=== PATIENT | male | born 1955 | race Caucasian/White ===

== ENCOUNTER 2021-12-17 18:20 | Emergency (ER) | payer MEDICARE ==
[2021-12-17 18:24] VITALS: PULSE 83
[2021-12-17] MEDS ORDERED: Sodium Chloride 0.9% 10 ML Syringe FLUSH PRN (18:32)
[2021-12-17] MEDS ORDERED: HYDROmorphone 0.5 MG/0.5 ML Syringe IVPUSH ONE (18:33)
[2021-12-17] MEDS ORDERED: Aspirin 81 MG Tab.Chew PO ONE (18:34)
[2021-12-17] MEDS ORDERED: Lactated Ringers 1,000 ML IV SCH (18:45)
[2021-12-17] MEDS ORDERED: Ondansetron 4 MG/2 ML SDV ONE (18:50)
[2021-12-17] MEDS ORDERED: Ondansetron 4 MG/2 ML SDV IVPUSH ONE (18:50)
[2021-12-17 19:11] LABS: PTT,PARTIAL THROMBOPLSTIN TIME 25.4 SEC (23.6-29.8)
[2021-12-17 19:17] LABS: CHLORIDE,CL 100 mmol/L (98-107); ESTIMATED GFR 57 mL/min (>=60); SODIUM,NA 140 mmol/L (136-145)
[2021-12-17] MEDS ORDERED: Iopamidol 612 MG/ML 100 ML Bottle IVPUSH ONE (19:31)
[2021-12-17 22:04] VITALS: BP 146/71
== END 2021-12-17 21:38 | disposition home or self-care (01) ==
LOC: LL.ED 18:20
DX: K51.011 Ulcerative (chronic) pancolitis with rectal bleeding (principal); I25.10 Atherosclerotic heart disease of native coronary artery without angina pectoris; J44.9 Chronic obstructive pulmonary disease, unspecified; I10 Essential (primary) hypertension; I25.2 Old myocardial infarction; Z79.899 Other long term (current) drug therapy; Z79.82 Long term (current) use of aspirin
CPT/HCPCS: 36415; 74177; 80053; 82150; 83605; 83690; 83735; 84100; 84484; 85025; 85610; 85730; 86140; 93005; 93010; 96361; 96374; 96375; 99284; 99284-25; A9270-GY; J1170; J2405; J3490; J7120; Q9967

== ENCOUNTER 2022-03-20 18:22 | Emergency (ER) | payer MEDICARE ==
[2022-03-20] MEDS ORDERED: Promethazine 25 MG/ML SDV IM PRN (18:40)
[2022-03-20] MEDS ORDERED: Ondansetron 4 MG/2 ML SDV IVPUSH PRN (18:40)
[2022-03-20] MEDS ORDERED: Morphine 4 MG/ML Syringe IVPUSH ONE ×2 (18:46→19:07)
[2022-03-20 18:57] VITALS: BP 137/54
[2022-03-20 18:58] LABS: CHLORIDE,CL 98 mmol/L (98-107); SODIUM,NA 135 mmol/L (136-145)
[2022-03-20 19:01] VITALS: PULSE 64
[2022-03-20 19:03] LABS: ANION GAP 7.9 meq/L (7-15); ESTIMATED GFR 53 mL/min (>=60)
[2022-03-20] MEDS ORDERED: Iopamidol 612 MG/ML 100 ML Bottle IVPUSH STA (19:09)
[2022-03-20] MEDS ORDERED: Sodium Chloride 0.9% 1,000 ML IV ONE (19:10)
[2022-03-20] MEDS ORDERED: methylPREDNISolone Sodium Succinate 40 MG/1 ML SDV IVPUSH ONE (20:25)
[2022-03-20] MEDS ORDERED: sulfaSALAzine 500 MG Tab PO ONE (20:28)
[2022-03-20] MEDS ORDERED: Acetaminophen 325 MG Tab PO ONE (20:52)
[2022-03-20] MEDS ORDERED: Acetaminophen/oxyCODONE 325-5 MG Tab PO ONE (20:52)
== END 2022-03-20 21:30 | disposition home or self-care (01) ==
LOC: LL.ED 18:22
DX: K51.90 Ulcerative colitis, unspecified, without complications (principal); I25.10 Atherosclerotic heart disease of native coronary artery without angina pectoris; I10 Essential (primary) hypertension; I25.2 Old myocardial infarction; J44.9 Chronic obstructive pulmonary disease, unspecified; M19.90 Unspecified osteoarthritis, unspecified site; Z79.82 Long term (current) use of aspirin; Z79.899 Other long term (current) drug therapy; Z72.0 Tobacco use
CPT/HCPCS: 36415; 74018; 74177; 80053; 82150; 83605; 83690; 83735; 85025; 86140; 96361; 96372; 96374; 96375; 99284-25; A9270-GY; J2270; J2405; J2550; J2920; J7030; Q9967

== ENCOUNTER 2022-05-01 08:18 | Day surgery (SDC) | payer MEDICARE ==
[~2022-05-01 08:18] MED LIST: Midazolam 1 MG/ML 2 ML SDV ONE; Propofol 200 MG/20 ML SDV ONE
[2022-05-01] MEDS ORDERED: Lactated Ringers 1,000 ML IV SCH (08:30)
[2022-05-01] MEDS ORDERED: Sodium Chloride 0.9% 10 ML Syringe FLUSH PRN (08:30)
[2022-05-01] MEDS ORDERED: Midazolam 1 MG/ML 2 ML SDV ONE (09:43)
[2022-05-01] MEDS ORDERED: Lidocaine 2% 5 ML SDV ONE (10:00)
[2022-05-01] MEDS ORDERED: Glycopyrrolate 0.2 MG/ML SDV IVPUSH ONE (10:00)
[2022-05-01 16:33] VITALS: BP 135/66; PULSE 80
== END 2022-05-01 12:05 | disposition home or self-care (01) ==
LOC: LL.SDS 08:18
PROVIDERS: ATTEND Surgery
DX: Z12.11 Encounter for screening for malignant neoplasm of colon (principal); D12.0 Benign neoplasm of cecum; K21.00 Gastro-esophageal reflux disease with esophagitis, without bleeding; K25.9 Gastric ulcer, unspecified as acute or chronic, without hemorrhage or perforation; K63.89 Other specified diseases of intestine; K52.9 Noninfective gastroenteritis and colitis, unspecified; I10 Essential (primary) hypertension; F17.210 Nicotine dependence, cigarettes, uncomplicated; Z79.899 Other long term (current) drug therapy
CPT/HCPCS: 88305; 88312; 88341; 88342; J2250; J2704; J3490; J7120

== ENCOUNTER 2023-07-28 10:55 | Emergency (ER) | payer MEDICARE, OTHER ==
[2023-07-28 11:23] LABS: BASOPHILS ABSOLUTE AUTO 0.18 K/uL (0.00-0.20); BASOPHILS PERCENT AUTO 1.2 % (0.0-2.0); EOSINOPHILS ABSOLUTE AUTO 0.56 K/uL (0.00-0.50); EOSINOPHILS PERCENT AUTO 3.8 % (0.0-5.0); HEMATOCRIT 48.5 % (39.0-49.0); HEMOGLOBIN 16.3 g/dL (13.1-16.8); LYMPHOCYTES ABSOLUTE AUTO 3.52 K/uL (0.50-3.50); LYMPHOCYTES PERCENT AUTO 23.9 % (10.0-50.0); MEAN CORPUSCULAR HEMOGLOBIN 31.4 pg (28.2-33.3); MEAN CORPUSCULAR HGB CONC 33.6 g/dL (31.7-36.0); MEAN CORPUSCULAR VOLUME 93.4 fL (84.0-98.0); MONOCYTES ABSOLUTE AUTO 1.72 K/uL (0.00-1.00); MONOCYTES PERCENT AUTO 11.7 % (2.0-14.0); NEUTROPHILS ABSOLUTE AUTO 8.74 K/uL (1.40-7.00); NEUTROPHILS PERCENT AUTO 59.4 % (45.0-80.0); PLATELET COUNT,PLT 494 K/uL (150-350); RED BLOOD CELL COUNT 5.19 M/uL (4.33-5.41); RED CELL DISTRIBUTION WIDTH 15.3 % (11.2-14.1); WHITE BLOOD CELL COUNT,WBC 14.7 K/uL (4.0-10.2)
[2023-07-28 11:36] LABS: ALANINE AMINOTRANSFERASE,ALT 33 U/L (12-78); ALBUMIN 3.5 g/dL (3.4-5.0); ALKALINE PHOSPHATASE 76 IU/L (46-116); ASPARTATE AMNIOTRANSFERASE,AST 33 U/L (15-37); BILIRUBIN TOTAL 0.7 mg/dL (0.2-1.0); BLOOD UREA NITROGEN,BUN 11 mg/dL (7-18); CALCIUM 8.8 mg/dL (8.5-10.1); CARBON DIOXIDE,CO2 24.9 mmol/L (21.0-32.0); CHLORIDE,CL 93 mmol/L (98-107); CREATININE 1.37 mg/dL (0.51-1.17); GLUCOSE RANDOM 99 mg/dL (70-99); POTASSIUM,K 3.1 mmol/L (3.5-5.1); PROTEIN TOTAL,TP 7.8 g/dL (6.4-8.2)
[2023-07-28 11:37] LABS: ANION GAP 6.2 meq/L (7-15); ESTIMATED GFR 56 mL/min (>=60); SODIUM,NA 121 mmol/L (136-145)
[2023-07-28] MEDS: Diphtheria,Pertussis(Acell),Tetanus Vaccine 0.5 ML Syringe IM ONE (11:39)
[2023-07-28] MEDS: Tranexamic Acid 1,000 MG/10 ML Vial TOP ONE (11:41)
[2023-07-28] MEDS: ceFAZolin 1 GM in Sodium Chloride 0.9% 100 ML IV ONE (11:41)
[2023-07-28] MEDS ORDERED: Potassium Bicarbonate/Cit Ac 20 MEQ Effervescent Tab PO ONE (13:01)
[2023-07-28] MEDS: Potassium Bicarbonate/Cit Ac 20 MEQ Effervescent Tab PO ONE ×2 (13:02→14:15)
[2023-07-28] MEDS: Lidocaine 1% 5 ML VIAL ONE (15:20)
[2023-07-28] MEDS: Bacitracin/Neomycin/Polymyxin B Oint 0.9 GM U/D Packet ONE (15:21)
== END 2023-07-28 15:34 | disposition home or self-care (01) ==
LOC: LL.ED 10:55
DX: S41.121A Laceration with foreign body of right upper arm, initial encounter (principal); S01.111A Laceration without foreign body of right eyelid and periocular area, initial encounter; S01.01XA Laceration without foreign body of scalp, initial encounter; E87.6 Hypokalemia; E87.1 Hypo-osmolality and hyponatremia; Z23 Encounter for immunization; I10 Essential (primary) hypertension; I25.2 Old myocardial infarction; I25.10 Atherosclerotic heart disease of native coronary artery without angina pectoris; Z79.82 Long term (current) use of aspirin; Z79.899 Other long term (current) drug therapy; W34.00XA Accidental discharge from unspecified firearms or gun, initial encounter
CPT/HCPCS: 12032; 36415; 70150; 73090-RT; 80053; 83735; 85025; 90471; 90715; 96365; 99285-25; A9270-GY; G0390; J0690; J3490

== ENCOUNTER 2024-03-25 03:46 | Emergency (ER) | payer MEDICARE ==
[2024-03-25 04:08] LABS: BASOPHILS ABSOLUTE AUTO 0.04 K/uL (0.00-0.20); BASOPHILS PERCENT AUTO 0.2 % (0.0-2.0); EOSINOPHILS ABSOLUTE AUTO 0.01 K/uL (0.00-0.50); HEMOGLOBIN 12.8 g/dL (13.1-16.8); IMMATURE GRAN ABSOLUTE AUTO 0.09 10^3/uL (0.00-0.50); IMMATURE GRAN PERCENT AUTO 0.4 % (0.0-5.0); LYMPHOCYTES ABSOLUTE AUTO 1.38 K/uL (0.50-3.50); LYMPHOCYTES PERCENT AUTO 5.8 % (10.0-50.0); MEAN CORPUSCULAR HEMOGLOBIN 29.2 pg (28.2-33.3); MEAN CORPUSCULAR HGB CONC 32.8 g/dL (31.7-36.0); MONOCYTES ABSOLUTE AUTO 3.78 K/uL (0.00-1.00); MONOCYTES PERCENT AUTO 15.8 % (2.0-14.0); NEUTROPHILS ABSOLUTE AUTO 18.65 K/uL (1.40-7.00); NEUTROPHILS PERCENT AUTO 77.8 % (45.0-80.0); PLATELET COUNT,PLT 519 K/uL (150-350); RED BLOOD CELL COUNT 4.38 M/uL (4.33-5.41); RED CELL DISTRIBUTION WIDTH 15.9 % (11.2-14.1)
[2024-03-25 04:09] VITALS: BP 151/76; PULSE 86
[2024-03-25 04:15] LABS: APPEARANCE,URINE SLIGHTLY CLOUDY; BILIRUBIN,URINE SMALL (NEGATIVE); COLOR,URINE DARK YELLOW; GLUCOSE,URINE NEGATIVE (NEGATIVE); KETONES,URINE TRACE mg/dL (NEGATIVE); LEUKOCYTE ESTERASE,URINE NEGATIVE (NEGATIVE); NITRITE,URINE NEGATIVE (NEGATIVE); OCCULT BLOOD,URINE NEGATIVE (NEGATIVE); PH,URINE 6.5 (5.0-9.0); PROTEIN,URINE 30 mg/dL (NEGATIVE)
[2024-03-25 04:24] LABS: BACTERIA,URINE NOT SEEN /HPF (NONE TO FEW); RBC,URINE 0-5 /HPF; WBC,URINE 0-5 /HPF
[2024-03-25 04:33] LABS: ALANINE AMINOTRANSFERASE,ALT 139 U/L (12-78); ALBUMIN 3.1 g/dL (3.4-5.0); ALKALINE PHOSPHATASE 399 IU/L (46-116); ANION GAP 12.2 meq/L (7-15); ASPARTATE AMNIOTRANSFERASE,AST 155 U/L (15-37); BLOOD UREA NITROGEN,BUN 11 mg/dL (7-18); CALCIUM 8.7 mg/dL (8.5-10.1); CARBON DIOXIDE,CO2 27.1 mmol/L (21.0-32.0); CHLORIDE,CL 100 mmol/L (98-107); CREATININE 1.16 mg/dL (0.51-1.17); ESTIMATED GFR 68 mL/min (>=60); GLUCOSE RANDOM 119 mg/dL (70-99); POTASSIUM,K 4.3 mmol/L (3.5-5.1); PROTEIN TOTAL,TP 8.2 g/dL (6.4-8.2); SODIUM,NA 135 mmol/L (136-145)
[2024-03-25] MEDS ORDERED: Naloxone 0.4 MG/ML SDV IVPUSH PRN ×2 (04:33→05:28)
[2024-03-25 04:49] LABS: INR 1.1
[2024-03-25] MEDS: fentaNYL 50 MCG/ML SDV IVPUSH ONE (04:51)
[2024-03-25] MEDS: Sodium Chloride 0.9% 10 ML Syringe FLUSH PRN (04:51)
[2024-03-25] MEDS ORDERED: Ondansetron 4 MG/2 ML SDV IVPUSH PRN (05:28)
[2024-03-25] MEDS: Piperacillin/Tazobactam 3.375 GM in Sodium Chloride 0.9% 100 ML IV SCH (05:31)
[2024-03-25] MEDS: fentaNYL 50 MCG/ML SDV IVPUSH PRN (05:33)
== END 2024-03-25 12:21 ==
LOC: LL.ED 03:46
DX: K81.0 Acute cholecystitis (principal); C78.7 Secondary malignant neoplasm of liver and intrahepatic bile duct; I25.10 Atherosclerotic heart disease of native coronary artery without angina pectoris; I25.2 Old myocardial infarction; I11.0 Hypertensive heart disease with heart failure; I50.30 Unspecified diastolic (congestive) heart failure; J44.9 Chronic obstructive pulmonary disease, unspecified; M19.90 Unspecified osteoarthritis, unspecified site; F17.210 Nicotine dependence, cigarettes, uncomplicated; Z79.82 Long term (current) use of aspirin; Z79.899 Other long term (current) drug therapy
CPT/HCPCS: 36415; 74176; 76700; 80053; 81001; 83605; 83690; 85025; 85610; 96365; 96375; 96376; 99285-25; J2543; J3010; J3490

== ENCOUNTER 2024-04-07 13:33 | Emergency (ER) | payer MEDICARE ==
[2024-04-07 14:30] VITALS: BP 149/65; PULSE 83
== END 2024-04-07 14:15 ==
LOC: LL.ED 13:33
DX: K76.89 Other specified diseases of liver (principal); C79.9 Secondary malignant neoplasm of unspecified site; I25.10 Atherosclerotic heart disease of native coronary artery without angina pectoris; I25.2 Old myocardial infarction; I10 Essential (primary) hypertension; J44.9 Chronic obstructive pulmonary disease, unspecified; M19.90 Unspecified osteoarthritis, unspecified site; Z79.82 Long term (current) use of aspirin; Z79.899 Other long term (current) drug therapy
CPT/HCPCS: 99285

== ENCOUNTER 2024-04-09 02:39 | Emergency (ER) | payer MEDICARE ==
[2024-04-09] MEDS: Lactulose Soln 10 GM/15 ML 30 ML UD Cup PO ONE (02:58)
[2024-04-09 03:01] VITALS: BP 189/82; PULSE 70
== END 2024-04-09 03:25 | disposition home or self-care (01) ==
LOC: LL.ED 02:39
DX: K59.03 Drug induced constipation (principal); F17.210 Nicotine dependence, cigarettes, uncomplicated; I10 Essential (primary) hypertension; J44.89 Other specified chronic obstructive pulmonary disease; Z79.82 Long term (current) use of aspirin; Z79.899 Other long term (current) drug therapy
CPT/HCPCS: 99283; 99284; A9270-GY

== ENCOUNTER 2024-04-20 18:19 | Emergency (ER) | payer MEDICARE ==
[2024-04-20 18:40] VITALS: BP 142/79; PULSE 82
== END 2024-04-20 18:50 | disposition left against medical advice (07) ==
LOC: LL.ED 18:19
DX: Z53.21 Procedure and treatment not carried out due to patient leaving prior to being seen by health care provider (principal)

== ENCOUNTER 2024-05-21 16:53 | Emergency (ER) | payer MEDICARE ==
[2024-05-21] MEDS ORDERED: Sodium Chloride 0.9% 10 ML Syringe FLUSH PRN (17:06)
[2024-05-21] MEDS: Sodium Chloride 0.9% 1,000 ML IV ONE ×2 (17:14→19:28)
[2024-05-21] MEDS: Ondansetron 4 MG/2 ML SDV IVPUSH ONE (17:17)
[2024-05-21] MEDS: HYDROmorphone 0.5 MG/0.5 ML Syringe ONE (17:21)
[2024-05-21] MEDS: Ondansetron 4 MG/2 ML SDV ONE (17:21)
[2024-05-21] MEDS: HYDROmorphone 0.5 MG/0.5 ML Syringe IV ONE (17:21)
[2024-05-21 17:36] LABS: BASOPHILS ABSOLUTE AUTO 0.06 K/uL (0.00-0.20); BASOPHILS PERCENT AUTO 0.2 % (0.0-2.0); EOSINOPHILS ABSOLUTE AUTO 0.01 K/uL (0.00-0.50); HEMOGLOBIN 7.6 g/dL (13.1-16.8); IMMATURE GRAN ABSOLUTE AUTO 0.63 10^3/uL (0.00-0.04); IMMATURE GRAN PERCENT AUTO 1.8 % (0.0-0.4); LYMPHOCYTES ABSOLUTE AUTO 0.55 K/uL (0.50-3.50); LYMPHOCYTES PERCENT AUTO 1.5 % (10.0-50.0); MEAN CORPUSCULAR HEMOGLOBIN 25.9 pg (28.2-33.3); MEAN CORPUSCULAR HGB CONC 31.7 g/dL (31.7-36.0); MEAN CORPUSCULAR VOLUME 81.9 fL (84.0-98.0); MONOCYTES ABSOLUTE AUTO 1.02 K/uL (0.00-1.00); MONOCYTES PERCENT AUTO 2.8 % (2.0-14.0); NEUTROPHILS ABSOLUTE AUTO 33.69 K/uL (1.40-7.00); NEUTROPHILS PERCENT AUTO 93.7 % (45.0-80.0); PLATELET COUNT,PLT 536 K/uL (150-350); RED BLOOD CELL COUNT 2.93 M/uL (4.33-5.41); RED CELL DISTRIBUTION WIDTH 17.3 % (11.2-14.1)
[2024-05-21 17:50] LABS: LACTIC ACID 4.3 mmol/L (0.4-2.0)
[2024-05-21 17:59] LABS: ALANINE AMINOTRANSFERASE,ALT 49 U/L (12-78); ALBUMIN 2.3 g/dL (3.4-5.0); ALKALINE PHOSPHATASE 273 IU/L (46-116); ANION GAP 14.9 meq/L (7-15); ASPARTATE AMNIOTRANSFERASE,AST 72 U/L (15-37); BILIRUBIN TOTAL 0.7 mg/dL (0.2-1.0); BLOOD UREA NITROGEN,BUN 21 mg/dL (7-18); CALCIUM 8.2 mg/dL (8.5-10.1); CARBON DIOXIDE,CO2 25.3 mmol/L (21.0-32.0); CHLORIDE,CL 97 mmol/L (98-107); CREATININE 1.32 mg/dL (0.51-1.17); ESTIMATED GFR 58 mL/min (>=60); GLUCOSE RANDOM 89 mg/dL (70-99); MAGNESIUM 1.5 mg/dL (1.8-2.4); POTASSIUM,K 3.2 mmol/L (3.5-5.1); PRO B-TYPE NATRIUR PEPT,BNPPRO 490 pg/mL (0-125); PROTEIN TOTAL,TP 6.7 g/dL (6.4-8.2); SODIUM,NA 134 mmol/L (136-145)
[2024-05-21] MEDS: Lidocaine 2% HCl 11 ML Jelly Filled Syringe TOP ONE (18:00)
[2024-05-21] MEDS: Lidocaine 2% HCl 11 ML Jelly Filled Syringe ONE (18:30)
[2024-05-21] MEDS: cefTRIAXone 1 GM Vial IVPUSH STA (18:32)
[2024-05-21 18:40] LABS: BILIRUBIN,URINE SMALL (NEGATIVE); COLOR,URINE YELLOW; GLUCOSE,URINE NEGATIVE (NEGATIVE); KETONES,URINE TRACE mg/dL (NEGATIVE); LEUKOCYTE ESTERASE,URINE NEGATIVE (NEGATIVE); NITRITE,URINE NEGATIVE (NEGATIVE); OCCULT BLOOD,URINE NEGATIVE (NEGATIVE); PH,URINE 5.5 (5.0-9.0); PROTEIN,URINE 100 mg/dL (NEGATIVE); UROBILINOGEN,URINE 0.2 E.U./dL (0.2-1.0)
[2024-05-21] MEDS: Magnesium Sulfate/Water Premix 2 GM in Premix Bag 1 BAG IV ONE (18:41)
[2024-05-21 18:44] LABS: APPEARANCE,URINE CLOUDY; BACTERIA,URINE FEW /HPF (NONE TO FEW); GRANULAR CASTS,URINE FEW; HYALINE CASTS,URINE FEW; RBC,URINE 0-5 /HPF; WBC,URINE 0-5 /HPF
[2024-05-21] MEDS: HYDROmorphone 0.5 MG/0.5 ML Syringe IVPUSH ONE (19:04)
[2024-05-21] MEDS: VANCOmycin 1.25 GM in Sodium Chloride 0.9% 250 ML IV ONE (19:04)
[2024-05-21] MEDS: Potassium Bicarbonate/Cit Ac 20 MEQ Effervescent Tab PO ONE (19:07)
[2024-05-21] MEDS: Apixaban 5 MG Tab PO ONE (19:47)
[2024-05-21] MEDS: Midazolam 1 MG/ML 2 ML SDV IVPUSH ONE (20:00)
[2024-05-21] MEDS: Iopamidol 612 MG/ML 100 ML Bottle IVPUSH ONE (20:06)
[2024-05-21 21:03] VITALS: BP 104/64; PULSE 109
== END 2024-05-21 21:05 ==
LOC: LL.ED 16:53
DX: E87.6 Hypokalemia (principal); E86.0 Dehydration; R00.0 Tachycardia, unspecified; R19.7 Diarrhea, unspecified; R79.89 Other specified abnormal findings of blood chemistry; R10.9 Unspecified abdominal pain; R74.01 Elevation of levels of liver transaminase levels; I10 Essential (primary) hypertension; I25.10 Atherosclerotic heart disease of native coronary artery without angina pectoris; I25.2 Old myocardial infarction; J44.9 Chronic obstructive pulmonary disease, unspecified; Z79.82 Long term (current) use of aspirin; Z79.899 Other long term (current) drug therapy
CPT/HCPCS: 36415; 51702; 71260; 74177; 80053; 81001; 82272; 83605; 83735; 83880; 84484; 85025; 87040; 87077; 87186; 87428-QW; 93005; 93010; 96361; 96365; 96366; 96368; 96375; 96376; 99284; 99285-25; A9270-GY; J0696; J2250; J2405; J3371; J3475; J7030; J7050; Q9967